=== PATIENT | male | born 1965 | race Caucasian/White ===

== ENCOUNTER → 2019-02-28 07:47 | Outpatient (CLI) | payer OTHER, SELFPAY ==
[2019-02-28 08:06] LABS: Add Manual Diff / Slide Review NO; Basophils Absolute Auto 100 /uL (0-100); Eosinophils Absolute Auto 200 /uL (0-450); Eosinophils Percent Auto 3.6 % (2-4); Hematocrit 41.4 % (41-53); Hemoglobin 14.5 g/dL (13.5-17.5); Lymphocytes Absolute Auto 1800 /uL (1100-4500); Lymphocytes Percent Auto 35.6 % (25-40); Mean Corpuscular Hemoglobin 31.7 PG (26-34); Mean Corpuscular Volume 90.5 fL (80-100); Monocytes Absolute Auto 500 /uL (0-900); Monocytes Percent Auto 10.4 % (3-14); Neutrophils Absolute Auto 2500 /uL (1500-7000); Neutrophils Percent Auto 48.4 % (50-75); Platelet Count 244 X10^3/uL (150-400); Red Blood Cell Count 4.57 X10^6/uL (4.5-5.9); White Blood Cell Count 5.1 X10^3/uL (4.5-11.0)
[2019-02-28 08:22] LABS: Alanine Aminotransferase 56 IU/L (21-72); Albumin 4.3 g/dL (3.5-5.0); Albumin Globulin Ratio 1.4 (1.0-2.8); Alkaline Phosphatase 52 U/L (38-126); Aspartate Aminotransferase 37 IU/L (17-59); BUN Creatinine Ratio 24.4 (6-22); Bilirubin Total 0.8 mg/dL (0.2-1.3); Blood Urea Nitrogen 22 mg/dL (9-20); Calcium 8.9 mg/dL (8.4-10.2); Carbon Dioxide 25 mmol/L (22-32); Chloride 109 mmol/L (98-107); Cholesterol 186 mg/dL (140-199); Estimated Glomerular Filt Rate > 60.0 mL/min (>60); Globulin 3.1 g/dL (1.7-4.1); Glucose 105 mg/dL (70-100); HDL Cholesterol 44 mg/dL (40-60); HEMOLYSIS < 15 (0-50); LDL Cholesterol Calculated 119 mg/dL (<100); Potassium 4.5 mmol/L (3.4-5.1); Sodium 142 mmol/L (137-145); Total Protein 7.4 g/dL (6.3-8.2); Triglycerides 115 mg/dL (35-150)
[2019-02-28 08:50] LABS: Prostate Specific Antigen Scrn 0.793 ng/mL (0.1-4.0)
[2019-02-28 09:30] LABS: Thyroid Stimulating Hormone 1.42 uIU/mL (0.47-4.68)
== END ==
PROVIDERS: PCP Family Medicine; Visit Provider Family Medicine
DX: E78.2 Mixed hyperlipidemia (principal); Z12.5 Encounter for screening for malignant neoplasm of prostate; Z13.1 Encounter for screening for diabetes mellitus; Z13.29 Encounter for screening for other suspected endocrine disorder; Z13.6 Encounter for screening for cardiovascular disorders
CPT/HCPCS: 36415; 80053; 80061; 84443; 85025; G0103

== ENCOUNTER → 2019-03-23 11:53 | Outpatient (CLI) | payer OTHER, SELFPAY | PROVIDERS: PCP Family Medicine; Visit Provider Family Medicine | DX: R20.2 Paresthesia of skin (principal) | CPT/HCPCS: 95885; 95886; 95911 ==

== ENCOUNTER 2019-08-02 13:38 | Day surgery (SDC) | payer OTHER, SELFPAY ==
--- NOTE | 2019-08-02 | PATH_ITS ---
[facility] Accession Number: [id number] . 01 Material submitted: . colon - ASCENDING COLON POLYP . 02 Diagnosis: Ascending Colon, Polyp: Tubular adenoma. MRV 08/04/2019 1123 Local . 02 Electronically signed: . Blaze Romano MD, PhD, Pathologist NPI- [id number] . 01 Gross description: . ASCENDING COLON POLYP: Received in formalin is 1 fragment(s) of conner, soft tissue measuring 2.5 x 0.5 x 0.2 cm submitted entirely in 1 cassette(s) /QBJ 08/03/2019 2309 Local . 02 Pathologist provided ICD-10: D12.2 . 02 CPT . 967973 Performed at: 01 [facility] [address] [place] [address], [place], [place] [id number] MD Reid Andino MD Phone: [phone] Performed at: 02 [facility] [address] [place], [place] [id number] MD Flower Marion MD Phone: [phone]
[2019-08-02 14:05] VITALS: BP 144/85; PULSE 88; RESP 16; TEMP 36.4; O2SAT 95; BMI 76.3
[2019-08-02] MEDS: SODIUM CHLORIDE 0.9% 1,000 ML 200 ML IV (14:20)
--- NOTE | 2019-08-02 14:27 | PM.HP.1 ---
History of Present Illness History of Present Illness Chief complaint: [id number] Patient History Medical History Hypertension (Chronic) Sleep apnea (Chronic) Surgical History Anesthesia (Resolved) Status post arthroscopy (Resolved 1981) Family & Social History Family History Brother Age: 57 Hypertension High cholesterol Father Age: 82 Heart disease Hypertension High cholesterol Mother Age: 81 Hypertension Sister Age: 58 Hypertension High cholesterol Social History: household members spouse Tobacco & Substance use: Smoking Status Never smoker Meds Home Medications and Allergies Home Medications Medication Instructions Recorded Confirmed Type Respironics DreamStation CPAP #1 ea 10/13/18 03/13/19 History atorvastatin 20 mg tablet 20 mg PO HS #90 tab 03/01/19 03/13/19 Rx Allergies Allergy/AdvReac Type Severity Reaction Status Date / Time No Known Drug Allergies Allergy Verified 08/02/19 14:01 Review of Systems Review of Systems ROS Unobtainable: All systems reviewed & are unremarkable except as noted in HPI and below Exam Vital Signs (past 8 hours): - 08/02/19 14:05 Temperature 97.5 F L Pulse Rate 88 Respiratory Rate 16 Blood Pressure 144/85 H Pulse Oximetry 95 Oxygen Delivery Method Room Air Narrative Exam Narrative: Awake alert and oriented x3, no acute distress, lungs clear, heart regular rate and rhythm, no lower extremity edema Assessment & Plan Assessment & Plan narrative: Colon cancer screening, for colonoscopy
--- NOTE | 2019-08-02 14:35 | SUR.PREOP ---
Patient resting quietly in stretcher with no complaints. Consent obtained by Physician.
--- NOTE | 2019-08-02 14:59 | PM.OP.ENDO ---
Operative Date/Time/Diagnoses Date of procedure: 08/02/19 Procedure & Clinicians Study performed: Colonoscopy with snare polypectomy Moderate conscious sedation was administered by the endoscopy nurse and supervised by the endoscopist. The following parameters were monitored: Oxygen saturation, heart rate, blood pressure, and response to care. Sedation dosage: 6 mg midazolam, 150 mcg fentanyl Indications: Personal history of colon polyps. Colon cancer screening. Last colonoscopy was in 2013. Procedure Notes Procedure in detail: Prior to the procedure, history and physical was performed, and patient medications and allergies were reviewed. Preprocedure nursing history and assessment was reviewed. Patient identification and proposed procedure were verified by the physician and nurse in the procedure room. The physical status of the patient was reassessed after the procedure. After informed consent was obtained including risks, benefits, and alternatives, the scope was passed under direct vision. Throughout the procedure, the patient's blood pressure, pulse, and oxygen saturations were monitored continuously. The colonoscope was introduced through the anus and advanced to the cecum as identified by the appendiceal orifice and ileocecal valve. The patient tolerated the procedure well. Bowel prep was deemed adequate to detect polyps greater than 5 mm. Perianal and digital rectal examinations were unremarkable. Retroflexion in the rectum revealed grade 1 internal hemorrhoids Multiple medium mouth diverticula noted in the sigmoid colon 7 mm sessile polyp removed from the ascending colon with a cold snare and retrieved. Impression: Internal hemorrhoids Sigmoid colon diverticulosis 7 mm ascending colon polyp removed Sedation minutes: 20 Complications: other (EBL minimal, no complications) Post-procedure Plan for aftercare: Follow-up pathology results Repeat colonoscopy in 5 years for screening purposes Resume home medications High fiber diet Discharge home with escort
[2019-08-02] MEDS: MIDAZOLAM 5 MG/5 ML VIAL 6 MG IV (15:31)
[2019-08-02] MEDS: fentaNYL 250 MCG/5 ML INJ 150 MCG IV (15:32)
[2019-08-02 15:40] VITALS: BP 99/59; PULSE 61; RESP 10; TEMP 37.2; O2SAT 93
[2019-08-02 15:45] VITALS: BP 100/64; PULSE 68; RESP 12; O2SAT 94
[2019-08-02 15:49] VITALS: BP 107/63; PULSE 62; RESP 12; TEMP 36.9; O2SAT 94
[2019-08-02 16:02] VITALS: BP 109/58; PULSE 59; RESP 16; TEMP 36.8; O2SAT 95
== END 2019-08-02 16:14 | disposition home or self-care (01) ==
PROVIDERS: PCP Family Medicine; Visit Provider Internal Medicine
PROC: 0DJD8ZZ Inspection of Lower Intestinal Tract, Via Natural or Artificial Opening Endoscopic (ICD-10-PCS; CPT 45378; principal; 2019-08-02 14:30)
DX: Z12.11 Encounter for screening for malignant neoplasm of colon (principal); Z86.010 Personal history of colon polyps; I10 Essential (primary) hypertension; G47.30 Sleep apnea, unspecified; D12.2 Benign neoplasm of ascending colon; K57.30 Diverticulosis of large intestine without perforation or abscess without bleeding; K64.0 First degree hemorrhoids
CPT/HCPCS: 45385; J2250; J3010

== ENCOUNTER → 2020-03-27 07:25 | Outpatient (CLI) | payer OTHER, SELFPAY ==
[2020-03-27 08:17] LABS: Add Manual Diff / Slide Review NO; Basophils Absolute Auto 0 /uL (0-100); Basophils Percent Auto 0.5 % (0-2); Eosinophils Absolute Auto 200 /uL (0-450); Eosinophils Percent Auto 3.8 % (2-4); Hematocrit 41.9 % (41-53); Hemoglobin 14.4 g/dL (13.5-17.5); Lymphocytes Absolute Auto 2300 /uL (1100-4500); Lymphocytes Percent Auto 41.3 % (25-40); Mean Corpuscular HGB Conc 34.4 % (30-36); Mean Corpuscular Hemoglobin 31.3 PG (26-34); Monocytes Absolute Auto 500 /uL (0-900); Monocytes Percent Auto 9.1 % (3-14); Neutrophils Absolute Auto 2500 /uL (1500-7000); Neutrophils Percent Auto 45.3 % (50-75); Platelet Count 250 X10^3/uL (150-400); Red Cell Distribution Width 12.8 % (11.6-14.8); White Blood Cell Count 5.5 X10^3/uL (4.5-11.0)
[2020-03-27 08:26] LABS: Alanine Aminotransferase 31 IU/L (<50); Albumin 4.3 g/dL (3.5-5.0); Albumin Globulin Ratio 1.6 (1.0-2.8); Alkaline Phosphatase 50 U/L (38-126); Aspartate Aminotransferase 27 IU/L (17-59); BUN Creatinine Ratio 26.3 (6-22); Bilirubin Total 0.6 mg/dL (0.2-1.3); Blood Urea Nitrogen 25 mg/dL (9-20); Calcium 9.5 mg/dL (8.4-10.2); Carbon Dioxide 24 mmol/L (22-32); Chloride 108 mmol/L (98-107); Cholesterol 182 mg/dL (140-199); Estimated Glomerular Filt Rate > 60.0 mL/min (>60); Globulin 2.7 g/dL (1.7-4.1); Glucose 106 mg/dL (70-100); HDL Cholesterol 50 mg/dL (40-60); HEMOLYSIS < 15 (0-50); LDL Cholesterol Calculated 118 mg/dL (<100); Potassium 4.1 mmol/L (3.4-5.1); Sodium 138 mmol/L (137-145); Triglycerides 69 mg/dL (35-150)
[2020-03-27 08:57] LABS: Prostate Specific Antigen Scrn 0.763 ng/mL (0.1-4.0)
[2020-03-27 08:59] LABS: Thyroid Stimulating Hormone 1.71 uIU/mL (0.47-4.68)
== END ==
PROVIDERS: PCP Family Medicine; Referring Provider Family Medicine; Visit Provider Family Medicine
DX: E78.2 Mixed hyperlipidemia (principal); Z12.5 Encounter for screening for malignant neoplasm of prostate
CPT/HCPCS: 36415; 80053; 80061; 84443; 85025; G0103

== ENCOUNTER → 2021-03-31 07:10 | Outpatient (CLI) | payer OTHER, SELFPAY ==
[2021-03-31 08:20] LABS: Add Manual Diff / Slide Review NO; Basophils Absolute Auto 0 /uL (0-100); Basophils Percent Auto 0.7 % (0-2); Eosinophils Absolute Auto 200 /uL (0-450); Eosinophils Percent Auto 3.8 % (2-4); Hematocrit 42.1 % (41-53); Hemoglobin 14.8 g/dL (13.5-17.5); Lymphocytes Absolute Auto 2100 /uL (1100-4500); Lymphocytes Percent Auto 40.1 % (25-40); Mean Corpuscular HGB Conc 35.2 % (30-36); Mean Corpuscular Hemoglobin 31.8 PG (26-34); Mean Corpuscular Volume 90.5 fL (80-100); Monocytes Absolute Auto 400 /uL (0-900); Monocytes Percent Auto 7.4 % (3-14); Neutrophils Absolute Auto 2500 /uL (1500-7000); Platelet Count 259 X10^3/uL (150-400); Red Blood Cell Count 4.65 X10^6/uL (4.5-5.9); Red Cell Distribution Width 12.8 % (11.6-14.8); White Blood Cell Count 5.2 X10^3/uL (4.5-11.0)
[2021-03-31 08:30] LABS: Alanine Aminotransferase 38 IU/L (<50); Albumin 4.3 g/dL (3.5-5.0); Albumin Globulin Ratio 1.4 (1.0-2.8); Alkaline Phosphatase 47 U/L (38-126); Aspartate Aminotransferase 35 IU/L (17-59); BUN Creatinine Ratio 20.9 (6-22); Bilirubin Total 0.8 mg/dL (0.2-1.3); Blood Urea Nitrogen 19 mg/dL (9-20); Calcium 9.2 mg/dL (8.4-10.2); Carbon Dioxide 25 mmol/L (22-32); Chloride 107 mmol/L (98-107); Cholesterol 186 mg/dL (140-199); Estimated Glomerular Filt Rate > 60.0 mL/min (>60); Globulin 3.1 g/dL (1.7-4.1); Glucose 102 mg/dL (70-100); HDL Cholesterol 53 mg/dL (40-60); HEMOLYSIS < 15 (0-50); LDL Cholesterol Calculated 108 mg/dL (<100); Potassium 3.8 mmol/L (3.4-5.1); Sodium 140 mmol/L (137-145); Total Protein 7.4 g/dL (6.3-8.2); Triglycerides 125 mg/dL (35-150)
[2021-03-31 09:00] LABS: Prostate Specific Antigen 0.886 ng/mL (0.10-4.00)
[2021-03-31 09:02] LABS: Thyroid Stimulating Hormone 2.14 uIU/mL (0.47-4.68)
== END ==
PROVIDERS: PCP Family Medicine; Referring Provider Family Medicine; Visit Provider Family Medicine
DX: E78.2 Mixed hyperlipidemia (principal)
CPT/HCPCS: 36415; 80053; 80061; 84153; 84443; 85025

== ENCOUNTER → 2022-03-10 14:13 | Outpatient (CLI) | payer OTHER, SELFPAY ==
[2022-03-10 15:15] LABS: Add Manual Diff / Slide Review NO; Basophils Absolute Auto 0 /uL (0-100); Basophils Percent Auto 0.3 % (0-2); Eosinophils Absolute Auto 100 /uL (0-450); Eosinophils Percent Auto 1.9 % (2-4); Lymphocytes Absolute Auto 2100 /uL (1100-4500); Lymphocytes Percent Auto 37.7 % (25-40); Mean Corpuscular HGB Conc 35.6 % (30-36); Mean Corpuscular Hemoglobin 32.2 PG (26-34); Mean Corpuscular Volume 90.3 fL (80-100); Monocytes Absolute Auto 400 /uL (0-900); Monocytes Percent Auto 7.2 % (3-14); Neutrophils Absolute Auto 2900 /uL (1500-7000); Neutrophils Percent Auto 52.9 % (50-75); Platelet Count 238 X10^3/uL (150-400); Red Blood Cell Count 4.65 X10^6/uL (4.5-5.9); Red Cell Distribution Width 12.8 % (11.6-14.8); White Blood Cell Count 5.5 X10^3/uL (4.5-11.0)
[2022-03-10 15:37] LABS: Alanine Aminotransferase 28 IU/L (<50); Albumin 4.6 g/dL (3.5-5.0); Albumin Globulin Ratio 1.6 (1.0-2.8); Alkaline Phosphatase 46 U/L (38-126); Aspartate Aminotransferase 28 IU/L (17-59); BUN Creatinine Ratio 21.9 (6-22); Bilirubin Total 0.7 mg/dL (0.2-1.3); Blood Urea Nitrogen 21 mg/dL (9-20); Carbon Dioxide 26 mmol/L (22-32); Chloride 104 mmol/L (98-107); Estimated Glomerular Filt Rate > 60 mL/min (>60); Globulin 2.9 g/dL (1.7-4.1); Glucose 93 mg/dL (70-100); HEMOLYSIS < 15 (0-50); Potassium 3.9 mmol/L (3.4-5.1); Sodium 139 mmol/L (137-145); Total Protein 7.5 g/dL (6.3-8.2)
== END ==
PROVIDERS: PCP Family Medicine; Referring Provider Physician Assistant; Visit Provider Physician Assistant
DX: R20.0 Anesthesia of skin (principal); R20.2 Paresthesia of skin
CPT/HCPCS: 36415; 80053; 85025

== ENCOUNTER → 2022-05-06 07:16 | Outpatient (CLI) | payer OTHER, SELFPAY ==
[2022-05-06 08:25] LABS: Add Manual Diff / Slide Review NO; Basophils Absolute Auto 0 /uL (0-100); Basophils Percent Auto 0.5 % (0-2); Eosinophils Absolute Auto 100 /uL (0-450); Eosinophils Percent Auto 2.7 % (2-4); Hematocrit 42.9 % (41-53); Hemoglobin 15.1 g/dL (13.5-17.5); Lymphocytes Absolute Auto 1900 /uL (1100-4500); Lymphocytes Percent Auto 36.1 % (25-40); Mean Corpuscular HGB Conc 35.3 % (30-36); Mean Corpuscular Volume 90.8 fL (80-100); Monocytes Absolute Auto 400 /uL (0-900); Neutrophils Absolute Auto 2800 /uL (1500-7000); Neutrophils Percent Auto 52.7 % (50-75); Platelet Count 258 X10^3/uL (150-400); Red Blood Cell Count 4.72 X10^6/uL (4.5-5.9); Red Cell Distribution Width 12.7 % (11.6-14.8); White Blood Cell Count 5.3 X10^3/uL (4.5-11.0)
[2022-05-06 09:01] LABS: Alanine Aminotransferase 32 IU/L (<50); Albumin 4.4 g/dL (3.5-5.0); Albumin Globulin Ratio 1.5 (1.0-2.8); Alkaline Phosphatase 47 U/L (38-126); Aspartate Aminotransferase 28 IU/L (17-59); BUN Creatinine Ratio 22.3 (6-22); Bilirubin Total 0.6 mg/dL (0.2-1.3); Blood Urea Nitrogen 23 mg/dL (9-20); Calcium 9.2 mg/dL (8.4-10.2); Carbon Dioxide 27 mmol/L (22-32); Chloride 103 mmol/L (98-107); Cholesterol 197 mg/dL (140-199); Estimated Glomerular Filt Rate > 60 mL/min (>60); Globulin 2.9 g/dL (1.7-4.1); Glucose 101 mg/dL (70-100); HDL Cholesterol 46 mg/dL (40-60); HEMOLYSIS < 15 (0-50); LDL Cholesterol Calculated 125 mg/dL (<100); Potassium 4.3 mmol/L (3.4-5.1); Sodium 140 mmol/L (137-145); Total Protein 7.3 g/dL (6.3-8.2); Triglycerides 130 mg/dL (35-150)
[2022-05-06 09:30] LABS: TSH w/ Reflex to FT4 1.88 uIU/mL (0.47-4.68)
[2022-05-06 09:34] LABS: Prostate Specific Antigen Scrn 0.933 ng/mL (0.1-4.0)
== END ==
PROVIDERS: PCP Family Medicine; Referring Provider Family Medicine; Visit Provider Family Medicine
DX: Z12.5 Encounter for screening for malignant neoplasm of prostate (principal); E78.2 Mixed hyperlipidemia; G62.9 Polyneuropathy, unspecified; R20.2 Paresthesia of skin; G47.33 Obstructive sleep apnea (adult) (pediatric); M72.0 Palmar fascial fibromatosis [Dupuytren]
CPT/HCPCS: 36415; 80053; 80061; 84443; 85025; G0103

== ENCOUNTER → 2022-05-08 18:41 | Outpatient (CLI) | payer OTHER, SELFPAY ==
--- NOTE | 2022-05-08 18:42 | DI.MRI.S_ITS ---
PROCEDURE: MR HEAD/BRAIN WO CON INDICATIONS: paresthesias, neuropathy TECHNIQUE: Noncontrast axial T1 spin echo, axial T2 fast spin echo, sagittal and axial FLAIR, coronal T2 fast spin echo, axial gradient echo, axial diffusion and ADC through the brain. COMPARISON: None. FINDINGS: Image quality: Excellent. CSF Spaces: Basal cisterns are patent. No extra-axial fluid collections. Ventricles are normal in size and shape. Brain: No intracranial masses or hemorrhage. Sahu/white matter interface is normal. Brainstem appears normal. Diffusion-weighted images demonstrate no acute ischemic insult. No chronic ischemic insults. Normal intravascular flow voids are present. Skull and face: Calvarium has normal marrow signal. Orbits appear normal. Sinuses: Bilateral maxillary sinus mucosal thickening with retention cysts. Ethmoid sinus and frontal sinus mucosal thickening present as well. IMPRESSION: Unremarkable MR brain without acute infarct, hemorrhage or mass lesion. Bilateral maxillary, ethmoid and frontal mucosal sinus disease Approved by: Collins Degroot M.D. on 05/09/2022 at 6:45
== END ==
PROVIDERS: PCP Family Medicine; Referring Provider Family Medicine; Visit Provider Family Medicine
DX: G62.9 Polyneuropathy, unspecified (principal); R20.2 Paresthesia of skin; J34.89 Other specified disorders of nose and nasal sinuses
CPT/HCPCS: 70551

== ENCOUNTER → 2022-07-09 14:16 | Outpatient (CLI) | payer OTHER, SELFPAY ==
[2022-07-09 14:59] LABS: Influenza A - CEPHEID Flu A NEGATIVE (NEGATIVE); Influenza B - CEPHEID Flu B NEGATIVE (NEGATIVE); Respiratory Syncytial Virus Negative (Negative)
[2022-07-09 15:05] LABS: COVID-19 CEPHEID 4-PLEX PCR POSITIVE (Negative)
== END ==
PROVIDERS: PCP Family Medicine; Visit Provider Nurse Practitioner Family
DX: J34.89 Other specified disorders of nose and nasal sinuses (principal)
CPT/HCPCS: 0241U

== ENCOUNTER → 2023-08-27 10:54 | Outpatient (CLI) | payer OTHER, SELFPAY ==
--- NOTE | 2023-08-27 10:56 | DI.RAD.S_ITS ---
PROCEDURE: XR KNEE LT 3V INDICATIONS: Left knee pain TECHNIQUE: 3 views of the knee were acquired. COMPARISON: None. FINDINGS: Bones: No fractures or dislocations. No suspicious bony lesions. Moderate to severe patellofemoral and moderate medial compartment arthritic narrowing. Periarticular osteophytes. Lateral patellar subluxation. Soft tissues: Moderate joint effusion. No suspicious soft tissue calcifications. IMPRESSION: Arthritic change most severe in the medial and patellofemoral compartments with effusion. Dictated by: Sammie Nina M.D. on 08/27/2023 at 17:33 Approved by: Sammie Nina M.D. on 08/27/2023 at 17:36
== END ==
PROVIDERS: PCP Family Medicine; Referring Provider Family Medicine; Visit Provider Family Medicine
DX: M25.562 Pain in left knee (principal); M25.462 Effusion, left knee
CPT/HCPCS: 73562

== ENCOUNTER → 2023-09-14 07:00 | Outpatient (CLI) | payer OTHER, SELFPAY ==
[2023-09-14 11:06] LABS: Clostridium Difficile Tox PCR Negative for C. diff (Negative)
[2023-09-14 13:36] LABS: Occult Blood 1 Positive (Negative); Occult Blood 2 Negative (Negative); Occult Blood 3 Negative (Negative)
== END ==
PROVIDERS: PCP Family Medicine; Referring Provider Nurse Practitioner Family; Visit Provider Nurse Practitioner Family
DX: R19.7 Diarrhea, unspecified (principal)
CPT/HCPCS: 82270; 87045; 87329; 87493

== ENCOUNTER → 2023-09-23 06:57 | Outpatient (CLI) | payer OTHER, SELFPAY ==
[2023-09-23 07:57] LABS: Add Manual Diff / Slide Review NO; Basophils Absolute Auto 0 /uL (0-100); Basophils Percent Auto 0.6 % (0-2); Eosinophils Absolute Auto 100 /uL (0-450); Eosinophils Percent Auto 2.4 % (2-4); Hemoglobin 13.7 g/dL (13.5-17.5); Lymphocytes Absolute Auto 1900 /uL (1100-4500); Lymphocytes Percent Auto 32.1 % (25-40); Mean Corpuscular HGB Conc 35.2 % (30-36); Mean Corpuscular Hemoglobin 30.9 PG (26-34); Mean Corpuscular Volume 87.8 fL (80-100); Monocytes Absolute Auto 400 /uL (0-900); Monocytes Percent Auto 7.6 % (3-14); Neutrophils Absolute Auto 3300 /uL (1500-7000); Neutrophils Percent Auto 57.3 % (50-75); Platelet Count 342 X10^3/uL (150-400); Red Blood Cell Count 4.44 X10^6/uL (4.5-5.9); Red Cell Distribution Width 13.2 % (11.6-14.8); White Blood Cell Count 5.8 X10^3/uL (4.5-11.0)
[2023-09-23 08:00] LABS: Alanine Aminotransferase 26 IU/L (<50); Albumin 3.9 g/dL (3.5-5.0); Albumin Globulin Ratio 1.4 (1.0-2.8); Alkaline Phosphatase 61 U/L (38-126); Aspartate Aminotransferase 24 IU/L (17-59); BUN Creatinine Ratio 19.8 (6-22); Bilirubin Total 0.6 mg/dL (0.2-1.3); Blood Urea Nitrogen 17 mg/dL (9-20); Calcium 9.4 mg/dL (8.4-10.2); Carbon Dioxide 25 mmol/L (22-32); Chloride 104 mmol/L (98-107); Cholesterol 145 mg/dL (140-199); Estimated Glomerular Filt Rate > 60 mL/min (>60); Globulin 2.7 g/dL (1.7-4.1); Glucose 102 mg/dL (80-110); HDL Cholesterol 41 mg/dL (40-60); HEMOLYSIS < 15 (0-50); LDL Cholesterol Calculated 92 mg/dL (<100); Potassium 4.4 mmol/L (3.4-5.1); Sodium 139 mmol/L (137-145); Total Protein 6.6 g/dL (6.3-8.2); Triglycerides 59 mg/dL (35-150)
[2023-09-23 08:01] LABS: Hemoglobin A1C% w Est Avg Glu 5.3 % (4.0-6.0)
[2023-09-23 08:33] LABS: Prostate Specific Antigen Scrn 1.16 ng/mL (0.1-4.0)
[2023-09-23 08:34] LABS: TSH w/ Reflex to FT4 1.66 uIU/mL (0.47-4.68)
[2023-09-24 05:39] LABS: Apolipoprotein B 71 mg/dL (<90)
[2023-09-28 03:10] LABS: Lipoprotein (a) 17.9 nmol/L (<75.0)
== END ==
PROVIDERS: PCP Family Medicine; Referring Provider Family Medicine; Visit Provider Family Medicine
DX: Z00.00 Encounter for general adult medical examination without abnormal findings (principal); Z12.5 Encounter for screening for malignant neoplasm of prostate
CPT/HCPCS: 36415; 80053; 80061; 82172; 83036; 83695; 84443; 85025; G0103

== ENCOUNTER → 2023-10-06 17:28 | Outpatient (CLI) | payer OTHER, SELFPAY ==
--- NOTE | 2023-10-06 17:29 | DI.MRI.S_ITS ---
PROCEDURE: MR KNEE LT WO CON INDICATIONS: left knee swelling, pop sensation and pain TECHNIQUE: Noncontrast sagittal PD fast spin echo and T2 fast spin echo with fat saturation, sagittal 3-D FLASH with fat saturation; coronal T1 spin echo and PD fast spin echo with fat saturation, and axial PD fast spin echo with fat saturation through the knee. COMPARISON: [facility], CR, XR KNEE LT 3V, 08/27/2023, 11:01. FINDINGS: Image quality: Excellent. Anterior cruciate ligament: Intact. Posterior cruciate ligament: Intact. Medial collateral ligament: Mild edema is seen surrounding the medial collateral ligament and there is focal hyperintense signal proximally, compatible with a grade 1-2 sprain. Lateral collateral ligament: Mild thickening of the proximal lateral collateral ligament is consistent with a remote prior low-grade sprain. Medial meniscus: Radial tearing of the medial meniscus at the posterior attachment with mild extrusion and intrasubstance degeneration in the meniscal body. Focal metal artifact is seen at the anterior root attachment of the medial meniscus that may be related to a prior surgery. Lateral meniscus: Intrasubstance degeneration is seen without a discrete tear. Medial and lateral tendons: The semimembranosus tendon insertion demonstrates mild tendinosis. Visualized portions of the pes anserinus tendons appear normal. The popliteus tendon insertion demonstrates mild tendinosis. Iliotibial band appears normal. Anterior structures: Mild patellar tendinosis. The distal quadriceps tendon is intact. No patellar subluxation. No femoral trochlear dysplasia or ventral trochlear prominence. No edema in the infrapatellar fat pad. Bones and cartilage: No bone marrow contusions or fractures. Medial femorotibial cartilage: Mild partial-thickness cartilage irregularity and thinning in the weight-bearing portion of the medial femorotibial compartment. Lateral femorotibial cartilage: Focal moderate to high-grade cartilage irregularity is seen at the central weight-bearing portion of the lateral tibial plateau. Patellofemoral cartilage: Large area of full-thickness cartilage loss is seen throughout the lateral portion of the patellofemoral compartment with subchondral cystic changes and remodeling of the articular surfaces. Small marginal osteophytes are present. Soft tissues: Moderate joint effusion is present. Small medial popliteal cyst is seen with surrounding soft tissue edema. Nonspecific subcutaneous edema is seen throughout the anterior aspect of the knee. Moderate fluid is seen tracking along the popliteus tendon sheath. The musculature surrounding the knee is normal in bulk. IMPRESSION: 1. Radial tearing at the posterior root attachment of the medial meniscus with mild extrusion and intrasubstance degeneration in the meniscal body. 2. Intrasubstance degeneration is seen in the lateral meniscus without a discrete tear. 3. Grade 1-2 sprain of the proximal to mid medial collateral ligament. 4. Remote prior low-grade sprain of the proximal lateral collateral ligament. 5. Large area of full-thickness cartilage loss in the patellofemoral compartment with remodeling of the articular surfaces. Grade 2 3 chondromalacia is seen in the lateral compartment and there is grade 2 cartilage thinning in the medial compartment. 6. Mild distal semimembranosus and popliteus tendinosis. 7. Mild patellar tendinosis. 8. Moderate joint effusion. Small medial and lateral popliteal cysts. Approved by: Gokul Rust M.D. on 10/07/2023 at 11:30
== END ==
LOC: MRI 17:29
PROVIDERS: PCP Family Medicine; Referring Provider Family Medicine; Visit Provider Family Medicine
DX: S83.242A Other tear of medial meniscus, current injury, left knee, initial encounter (principal); S83.412A Sprain of medial collateral ligament of left knee, initial encounter; S83.422A Sprain of lateral collateral ligament of left knee, initial encounter; M94.262 Chondromalacia, left knee; M71.22 Synovial cyst of popliteal space [Baker], left knee; M25.562 Pain in left knee; M25.462 Effusion, left knee
CPT/HCPCS: 73721

== ENCOUNTER 2024-02-08 07:21 | Day surgery (SDC) | payer OTHER, SELFPAY ==
--- NOTE | 2024-02-08 | PATH_ITS ---
[facility] Accession Number: [id number] No. of containers..01 Tissue . 01 Material submitted: . colon - SIGMOID POLYP . 01 Diagnosis: A. SIGMOID COLON POLYP, POLYPECTOMY: Tubular adenoma. MRV 02/14/2024 1355 Local . 01 Electronically signed: . Lynn Harper MD, Pathologist NPI- [id number] . 01 Gross description: . SIGMOID POLYP: Received in formalin are 2 fragment(s) of conner, soft tissue measuring 0.2 x 0.2 x 0.2 cm to 0.3 x 0.3 x 0.3 cm submitted entirely in 1 cassette(s) /CROW 02/09/2024 0140 Local . 01 Pathologist provided ICD-10: D12.6 . 01 CPT . 132439 Specimen Comment: A courtesy copy of this report has been sent to [phone] Performed at: [address] [facility] [address], [place], [place] [id number] MD Reid Andino MD Phone: [phone]
[2024-02-08 07:52] VITALS: BP 153/84; PULSE 74; RESP 18; TEMP 36.5; O2SAT 98
[2024-02-08] MEDS: LACTATED RINGERS 1,000 ML 42 ML IV (07:59)
--- NOTE | 2024-02-08 08:12 | P.HP_ITS ---
History of Present Illness History of Present Illness Date Patient Seen: 02/08/24 Time Patient Seen: 08:12 Chief complaint: SDC Narrative: 58-year-old man personal history of colonic polyps here for screening colonoscopy. Last colonoscopy 2018. No family history of colon cancer. No abdominal concerns today. [facility] Medical History Hypertension Neuropathy Encounter for general adult medical examination with abnormal findings Sleep apnea Surgical History Anesthesia Status post arthroscopy (1981) Family History Brother Age: 61 Hypertension High cholesterol Father Age: 86 Heart disease Hypertension High cholesterol Mother Age: 85 Hypertension Sister Age: 62 Hypertension High cholesterol Social History household members: spouse Smoking Status: Never smoker alcohol intake: current Meds Home Medications and Allergies Home Medications Medication Instructions Recorded Confirmed Type Respironics DreamStation CPAP #1 ea 10/13/18 09/30/23 History amlodipine 5 mg tablet 7.5 mg (1.5 x 5 mg) PO DAILY #135 12/18/22 02/08/24 Rx tabs atorvastatin 20 mg tablet 20 mg PO ONCE PM #90 tabs 12/20/23 02/08/24 Rx Allergies Allergy/AdvReac Type Severity Reaction Status Date / Time No Known Drug Allergies Allergy Verified 02/08/24 07:33 Exam Vital Signs (past 8 hours): - 02/08/24 07:52 Temperature 97.7 F Pulse Rate 74 Respiratory Rate 18 Blood Pressure 153/84 H Pulse Oximetry 98 Oxygen Delivery Method Room Air Oxygen Delivery Method Room Air Narrative Exam Narrative: General adult man alert oriented no acute distress Chest nonlabored respiration Extremities warm well perfused Assessment & Plan Assessment & Plan narrative: The patient requires colorectal screening and colonoscopy is recommended. Kaycee hnical details were discussed. Risks, benefits, alternatives explained. Risks including but not limited to myocardial infarction, aspiration, bleeding, pain, missed lesion, incomplete examination, need for further radiographic studies, intestinal injury, and need for major abdominal surgery were discussed. All questions were answered to their satisfaction, and they are in agreement with this plan.
[2024-02-08 08:31] VITALS: BP 108/51; PULSE 74; RESP 19; TEMP 37.2; O2SAT 94
--- NOTE | 2024-02-08 08:36 | P.OP.COLON_ITS ---
Operative Date/Time/Diagnoses Date of procedure: 02/08/24 Time of procedure: 08:36 Pre-op diagnosis: Personal history of colonic polyps Post-op diagnosis: other (Colonic polyp x1) Procedure & Clinicians Study performed: Colonoscopy and polypectomy Same procedure as scheduled: Yes Indications: Colorectal screening Surgeon: Isaac Gtz Procedure Notes Procedure in detail: The history and physical was performed/updated and the patient is ASA class is 2. The procedure was discussed in detail with the patient. Potential risks complications including infection, bleeding, missed diagnosis, perforation, need for surgery, and were explained. Their questions were answered and informed consent was obtained. Patient was brought to the procedure room and placed standard monitoring equipment. The patient's vital signs were monitored continuously throughout the entire procedure. Prior to starting time-out was performed. The patient was placed in the left lateral recumbent position. Procedural sedation was administered by anesthesia. Examination began with a thorough inspection of the perianal area there was no evidence of fissures, fistulae, external hemorrhoids or cutaneous malignancy. The colonoscopy scope was then placed into the anal canal and was advanced to the cecum, which was identified by the ileocecal valve, the appendiceal orifice and the confluence of the taenia. The scope was then slowly withdrawn examining colon thoroughly in all directions, irrigating it of any residual stool. The scope was retroflexed within the rectum The patient tolerated the procedure well. They will be discharged once criteria are met. The prep was of good/excellent quality. The withdrawl time was 6 minutes. FINDINGS * Sigmoid colon diverticulosis. 5 mm polyp removed with biopsy forceps * Internal hemorrhoids Specimen(s): other (Sigmoid polyp) Impression: Colonic polyp x1 Post-procedure Recommendations: High fiber diet Plan for aftercare: Follow-up dependent on pathology findings Disposition: same day surgery
[2024-02-08 08:37] VITALS: BP 122/73; PULSE 69; RESP 17; TEMP 36.8; O2SAT 94
[2024-02-08 08:43] VITALS: BP 128/74; PULSE 68; RESP 14; TEMP 36.8; O2SAT 94
== END 2024-02-08 09:18 | disposition home or self-care (01) ==
PROVIDERS: PCP Family Medicine; Referring Provider Surgery; Visit Provider Surgery
PROC: 0DJD8ZZ Inspection of Lower Intestinal Tract, Via Natural or Artificial Opening Endoscopic (ICD-10-PCS; CPT 45378; principal; 2024-02-08 08:15)
DX: Z12.11 Encounter for screening for malignant neoplasm of colon (principal); Z86.010 Personal history of colon polyps; K57.30 Diverticulosis of large intestine without perforation or abscess without bleeding; K64.8 Other hemorrhoids; D12.5 Benign neoplasm of sigmoid colon
CPT/HCPCS: 45380; J2704

== ENCOUNTER 2024-09-28 18:33 | Emergency (ER) | payer OTHER, SELFPAY ==
[2024-09-28 18:43] VITALS: BP 159/77; PULSE 69; RESP 18; TEMP 36.6; O2SAT 100; BMI 33.0
--- NOTE | 2024-09-28 18:47 | DI.RAD.S_ITS ---
PROCEDURE: XR SHOULDER RT MIN 2V INDICATIONS: glf, right arm pain. TECHNIQUE: 3 views of the shoulder were acquired. COMPARISON: None. FINDINGS: Bones: No fractures or dislocations. Mild acromioclavicular joint degeneration. No suspicious bony lesions. Visualized ribs appear intact. Soft tissues: No suspicious soft tissue calcifications. IMPRESSION: No acute osseous abnormality. If pain persists with conservative management, consider repeat x-ray in 10-14 days or cross-sectional imaging. Dictated by: Jose D Solo M.D. on 09/28/2024 at 19:47 Approved by: Jose D Solo M.D. on 09/28/2024 at 19:47
--- NOTE | 2024-09-28 18:48 | DI.RAD.S_ITS ---
PROCEDURE: XR HUMERUS RT 2V INDICATIONS: glf, right arm pain. TECHNIQUE: 3 views of the humerus were acquired. COMPARISON: None. FINDINGS: Bones: No fractures or dislocations. No suspicious bony lesions. Soft tissues: No suspicious soft tissue calcifications. IMPRESSION: No acute osseous abnormality. If pain persists with conservative management, consider repeat x-ray in 10-14 days or cross-sectional imaging. Dictated by: Jose D Solo M.D. on 09/28/2024 at 19:48 Approved by: Jose D Solo M.D. on 09/28/2024 at 19:48
[2024-09-28 22:16] VITALS: BP 144/79; PULSE 65; RESP 18; O2SAT 97
== END 2024-09-28 22:30 | disposition left against medical advice (07) ==
PROVIDERS: Emergency Provider Student in an Organized Health Care Education/Training Program; PCP Family Medicine
DX: M25.511 Pain in right shoulder (principal); W00.0XXA Fall on same level due to ice and snow, initial encounter
CPT/HCPCS: 73030; 73060; 99281

== ENCOUNTER → 2024-10-07 07:20 | Outpatient (CLI) | payer OTHER, SELFPAY ==
--- NOTE | 2024-10-07 07:23 | DI.MRI.S_ITS ---
PROCEDURE: MR SHOULDER RT WO CON INDICATIONS: fall, significant pain, reduced ROM TECHNIQUE: Noncontrast oblique coronal T2 fast spin echo with fat saturation, oblique sagittal T1 spin echo and T2 fast spin echo with fat saturation, axial T1 spin echo and T2 fast spin echo with fat saturation through the shoulder. COMPARISON: [facility], CR, XR SHOULDER RT MIN 2V, 09/28/2024, 19:10. FINDINGS: Image quality: Diagnostic Rotator cuff: Bulk: No high-grade atrophy, however there is moderate edema of the supraspinatus and infraspinatus Teres minor: Mild edema and insertional tendinopathy Supraspinatus: Moderate tendinopathy is seen throughout the anterior fibers. Full-thickness tear is seen along the posterior fibers. Infraspinatus: Full-thickness tear with tendinous retraction to the level of the acromion Subscapularis: Moderate thickening and edema Bones and bursae: GH joint: There is [id number] edema and background mild arthrosis. Small debris is seen throughout the joint AC joint: Advanced degenerative changes with edema, capsular hypertrophy, and effusion Humeral head: No acute fracture Scapula and acromion: No acute fracture. Periarticular bone fragments are seen around the AC joint, likely degenerative. Probable partial capsular rupture through the superior aspect of the AC joint Bursa: Joint effusion extends to the bursa Capsule: Labrum: Suspect small superior labral tear involving the biceps anchor Long head biceps tendon: Small tear extends to the glenoid attachment, along with tendinopathy. Joint effusion extends to the bicipital groove IGHL: Intact Rotator interval: Effaced with edema, suggestive of capsulitis Soft tissues: No axillary adenopathy. Lungs are not well seen. IMPRESSION: Acute edema is seen throughout the supraspinatus and infraspinatus. Full thickness rupture is seen in the infraspinatus with capsular retraction, extending partially into the posterior fibers of the supraspinatus. Background tendinopathy is seen in the supraspinatus, teres minor , and subscapularis. Probable small superior labral tear involving the biceps attachment. [id number] glenohumeral arthrosis. Joint effusion with debris, extending the bicipital groove, bursa, and acromioclavicular joint. Advanced degenerative changes of the acromioclavicular joint, with partial capsular rupture at the superior aspect. Dictated by: Dio Barrera M.D. on 10/09/2024 at 9:53 Approved by: Dio Barrera M.D. on 10/09/2024 at 9:58
== END ==
PROVIDERS: PCP Family Medicine; Referring Provider Family Medicine; Visit Provider Family Medicine
DX: M19.011 Primary osteoarthritis, right shoulder (principal); M25.511 Pain in right shoulder; M75.111 Incomplete rotator cuff tear or rupture of right shoulder, not specified as traumatic; M25.611 Stiffness of right shoulder, not elsewhere classified; M25.411 Effusion, right shoulder
CPT/HCPCS: 73221

== ENCOUNTER → 2024-10-13 07:39 | Outpatient (CLI) | payer OTHER, SELFPAY ==
[2024-10-13 07:58] LABS: Add Manual Diff / Slide Review NO; Basophils Absolute Auto 0 /uL (0-100); Basophils Percent Auto 0.8 % (0-2); Eosinophils Absolute Auto 200 /uL (0-450); Hemoglobin 15.1 g/dL (13.5-17.5); Lymphocytes Absolute Auto 2500 /uL (1100-4500); Lymphocytes Percent Auto 41.5 % (25-40); Mean Corpuscular Hemoglobin 31.3 PG (26-34); Mean Corpuscular Volume 89.5 fL (80-100); Monocytes Absolute Auto 400 /uL (0-900); Monocytes Percent Auto 7.2 % (3-14); Neutrophils Absolute Auto 2800 /uL (1500-7000); Neutrophils Percent Auto 46.5 % (50-75); Platelet Count 337 X10^3/uL (150-400); Red Blood Cell Count 4.81 X10^6/uL (4.5-5.9); Red Cell Distribution Width 13.1 % (11.6-14.8)
[2024-10-13 08:24] LABS: Alanine Aminotransferase 33 IU/L (<50); Albumin 4.5 g/dL (3.5-5.0); Albumin Globulin Ratio 1.6 (1.0-2.8); Alkaline Phosphatase 58 U/L (38-126); Aspartate Aminotransferase 30 IU/L (17-59); BUN Creatinine Ratio 21.6 (6-22); Bilirubin Total 0.6 mg/dL (0.2-1.3); Blood Urea Nitrogen 19 mg/dL (9-20); Carbon Dioxide 23 mmol/L (22-32); Chloride 107 mmol/L (98-107); Cholesterol 183 mg/dL (140-199); Estimated Glomerular Filt Rate > 60 mL/min (>60); Globulin 2.8 g/dL (1.7-4.1); Glucose 107 mg/dL (80-110); HDL Cholesterol 57 mg/dL (40-60); HEMOLYSIS < 15 (0-50); LDL Cholesterol Calculated 114 mg/dL (<100); Potassium 4.3 mmol/L (3.4-5.1); Sodium 140 mmol/L (137-145); Total Protein 7.3 g/dL (6.3-8.2); Triglycerides 62 mg/dL (35-150)
[2024-10-13 08:43] LABS: Creatinine Urine Random 40.76 mg/dL
[2024-10-13 08:56] LABS: Microalbumin Urine Random < 0.6 mg/dL (0-1.6)
[2024-10-13 08:58] LABS: Prostate Specific Antigen Scrn 2.86 ng/mL (0.1-4.0)
[2024-10-13 09:04] LABS: TSH w/ Reflex to FT4 1.85 uIU/mL (0.47-4.68)
[2024-10-14 03:36] LABS: CRP, High Sensitivity 1.23 mg/L (0.00-3.00)
[2024-10-14 08:11] LABS: Apolipoprotein B 78 mg/dL (<90)
[2024-10-17 08:36] LABS: Lipoprotein (a) 22.5 nmol/L (<75.0)
== END ==
PROVIDERS: PCP Family Medicine; Referring Provider Family Medicine; Visit Provider Family Medicine
DX: Z00.01 Encounter for general adult medical examination with abnormal findings (principal); E78.2 Mixed hyperlipidemia; I10 Essential (primary) hypertension; W19.XXXA Unspecified fall, initial encounter; Z12.5 Encounter for screening for malignant neoplasm of prostate
CPT/HCPCS: 36415; 80053; 80061; 82043; 82172; 82570; 83695; 84443; 85025; 86140; G0103